=== PATIENT | female | born 1990 | race Caucasian/White ===

== ENCOUNTER 2021-10-04 13:39 | Emergency (ER) | payer BC, SELFPAY ==
[2021-10-04 13:42] VITALS: BP 120/83; PULSE 104; RESP 18; TEMP 37.3; O2SAT 97
--- NOTE | 2021-10-04 14:02 | ED.GENADULT ---
HPI - General Adult General Chief complaint: Upper Respiratory Infection Stated complaint: Body Aches,Vomiting,Fever History of Present Illness HPI narrative: Patient is a 31-year-old female who presents to the [facility] via POV for COVID-like symptoms that began yesterday. Additionally, she reports fever, chills, sweats, and vomiting. She reports one episode of vomiting undigested food. Maximum temperature was 101.9. She is taking ibuprofen every 6 hours. Ibuprofen controls fever and improves symptoms. Nothing worsens symptoms. Denies known exposure to sick contacts. Patient reports she is fully vaccinated against COVID. Related Data Home Medications Medication Instructions Recorded Confirmed etonogestrel 0.12 mg-ethinyl See Rx Instructions .Route .COMPLEX 10/04/21 10/04/21 estradiol 0.015 mg/24 hr vaginal ring (NuvaRing) Allergies Allergy/AdvReac Type Severity Reaction Status Date / Time aspirin AdvReac Severe Swelling Verified 10/04/21 13:56 of Lip/Tongue/Throat sulfamethoxazole AdvReac Mild Hives Verified 10/04/21 13:57 [From Bactrim] trimethoprim [From Bactrim] AdvReac Mild Hives Verified 10/04/21 13:57 Review of Systems Review of Systems: Denies history of COPD, bronchitis, asthma, and pneumonia. Denies current/past tobacco use. Pertinent negatives: change in appetite, fatigue, skin color changes, headache, nasal congestion/discharge, dizziness, lymphadenopathy, sinus problems, ear pain/drainage, chest pain, heart murmurs, heart palpitations, shortness of breath, wheezing, cyanosis, hemoptysis, hoarseness, orthopnea, pleuritic pain, nausea, diarrhea, and myalgias. PMFSH Comments I have reviewed and agree with the patient's past medical, surgical, social, and family hx as documented by the RN. There is no relevant family history pertinent to the presenting complaint. Exam Narrative: GENERAL: Well-appearing, well-nourished, and in no acute distress. Appears uncomfortable. HEAD: Normocephalic, atraumatic. No sinus tenderness or facial swelling appreciated. EYES: PERRLA and EOMI. No evidence of erythema, swelling, or drainage. ENT: Bilateral external ears and ear canals normal. Bilateral TMs are normal.No TM perforation. Nares clear, no rhinorrhea or epistaxis. Bilateral turbinates without erythema/ swelling. Mucous membranes moist and pink. Uvula is midline without erythema and swelling. No evidence of petechial rash, cobblestoning, lesions, ulcers, erythema, swelling, exudates, peritonsillar abscess, tenting, or drooling. Breath odor and voice normal. NECK: Supple. No Lymphadenopathy or nuchal rigidity appreciated. CHEST: Bilateral lung moreno are clear to auscultation. No respiratory distress. No evidence of cough or pleuritic cp upon examination. HEART: Tachycardia with a rate of 104. Regular rhythm. No murmur, gallop, or rub heard. EXTREMITIES: Normal range of motion. No edema. SKIN: Warm, clammy, no rash. NEURO: No focal deficits. Alert and oriented x3. Course Course Level of Care: Express Care Visit Medical Decision Making Differential Diagnosis Differential Diagnosis: Allergic rhinitis, ABRS, acute viral sinusitis, strep pharyngitis, nasopharyngitis, bronchitis, pneumonia, AOM, otitis externa, viral URI, influenza, covid-19 Vital Signs Vital Signs: Reviewed Lab Data Lab results narrative: rapid covid 19 is positive Critical Care Time Critical Care Time Critical Care Time: No Discharge Plan Discharge Clinical Impression: COVID-19 Patient Disposition: Home, Self-Care Condition: Stable Instructions: COVID-19 (Coronavirus Disease 2019) (ED) Additional Instructions: See discharge instructions for detailed information. If you have been prescribed a medication today, be sure to take/use the medication only as prescribed. You may take Tylenol/ibuprofen as needed for pain and swelling. Take only as directed per packaging label. Follow-u
== END 2021-10-04 14:25 | disposition home or self-care (01) ==
PROVIDERS: Emergency Provider Nurse Practitioner Family; PCP Nurse Practitioner Family
DX: U07.1 COVID-19 (principal)
CPT/HCPCS: 87426; 99203; C9803; G0463

== ENCOUNTER 2021-11-24 18:36 | Emergency (ER) | payer BC, SELFPAY ==
[2021-11-24 18:45] VITALS: BP 111/77; PULSE 124; RESP 18; TEMP 38.2; O2SAT 100
--- NOTE | 2021-11-24 18:46 | ED.ABDPAIN ---
HPI - Abdominal Pain General Chief Complaint: Unspecified Stated Complaint: Nausea,Lt Ear Irritation,Headache,Lower Back Pain Time Seen by Provider: 11/24/21 18:46 Source: patient, RN notes reviewed and old records reviewed Mode of arrival: ambulatory Limitations: no limitations History of Present Illness HPI narrative: 31-year-old female presents to the [facility] with concerns of nausea, low back pain, lower abdominal cramping, left ear irritation and a headache. Originally patient was concerned that she might have an ear infection then stated she might have a UTI. Is due to start her period any day now. Has low-grade fever, has not taken anything for it. Positive for COVID in September 2021 per medical record Started Ozempic on Tuesday, 2 days ago. Symptoms all started at noon today MD elicited complaint: abdominal pain Related Data Home Medications Medication Instructions Recorded Confirmed etonogestrel 0.12 mg-ethinyl See Rx Instructions .Route .COMPLEX 10/04/21 10/04/21 estradiol 0.015 mg/24 hr vaginal ring (NuvaRing) semaglutide 0.25 mg or 0.5 mg (2 0.25 mg subcut WEEKLY 11/24/21 11/24/21 mg/1.5 mL) subcutaneous pen injector (Ozempic) topiramate 25 mg tablet 25 mg PO BID 11/24/21 11/24/21 Allergies Allergy/AdvReac Type Severity Reaction Status Date / Time lamotrigine [From Lamictal] Allergy Rash Verified 11/24/21 18:57 aspirin AdvReac Severe Swelling Verified 11/24/21 18:57 of Lip/Tongue/Throat sulfamethoxazole AdvReac Mild Hives Verified 11/24/21 18:57 [From Bactrim] trimethoprim [From Bactrim] AdvReac Mild Hives Verified 11/24/21 18:57 Review of Systems Review of Systems: All systems reviewed & are unremarkable except as noted in HPI and below Constitutional: Constitutional: Reports as per HPI, Denies chills, Reports fatigue, Reports fever(s) and Reports headache(s) Eyes: Eyes: Reports no additional eye complaints ENT: Reports system reviewed and no additional complaints, except as documented Cardiovascular: Cardiovascular: Reports no additional cardiovascular complaints Respiratory: Respiratory: Reports no additional respiratory complaints Gastrointestinal: Gastrointestinal: Reports as per HPI, Reports abdominal pain (Lower abdominal cramping) and Reports nausea Musculoskeletal: Musculoskeletal: Reports as per HPI and Reports back pain (Lower back) Integumentary/Breasts: Skin/Breast: Reports system reviewed and no additional complaints, except as docu Neurologic: Reports system reviewed and no additional complaints, except as documented Psychiatric: Psychiatric: Reports no additional psychiatric complaints Allergic/Immunologic: Allergic/Immunologic: Reports no additional allergic/immunologic complaints [facility] Past Medical History Medical History (Updated 11/24/21 @ 19:42 by Rekha Jacinto APRN) Diabetes Comments At the time of my signature, I reviewed and agree with the nursing past medical, surgical, social, and family history. There is no relevant family history pertinent to the patient complaint. Exam Const: General: healthy appearing, no acute distress and alert Nutritional Appearance: well nourished Orientation/consciousness: patient oriented x3 Limitations: no limitations HENMT: Head: normal to inspection Ears: external ears normal, TM's normal bilaterally and EAC's normal General nose exam: Normal external nose present and Normal nares present Face and sinus: normal facial exam and sinuses nontender Mouth: Yes Normal oral and palatal mucosa present, Yes lip normal and Yes tongue normal Teeth and gingiva: dentition normal and gingiva normal Throat: posterior oropharynx normal, tonsils normal and uvula midline Eyes: General: appearance normal, both eyes and all related structures Conjunctivae: conjunctivae normal Pupils: Equal, round and reactive pupils present Neck: Neck: normal visual inspection, no lymphadenopathy and no meningeal signs Chest: Ch
== END 2021-11-24 19:41 | disposition short-term general hospital (02) ==
PROVIDERS: Emergency Provider Nurse Practitioner; PCP Nurse Practitioner Family
DX: R10.9 Unspecified abdominal pain (principal); R50.9 Fever, unspecified; E11.9 Type 2 diabetes mellitus without complications; Z86.16 Personal history of COVID-19
CPT/HCPCS: 81003; 87804; 99213; G0463

== ENCOUNTER 2021-11-24 19:58 | Emergency (ER) | payer BC, SELFPAY ==
[2021-11-24 20:01] VITALS: BP 118/62; PULSE 145; RESP 20; TEMP 37.4; O2SAT 100
--- NOTE | 2021-11-24 20:16 | ECG_ITS ---
Measurements Intervals [place] Rate: 137 P: 58 IA: 140 QRS: 30 QRSD: 75 T: 44 QT: 330 QTc: 500 Interpretive Statements SINUS TACHYCARDIA NONSPECIFIC ST & T-WAVE ABNORMALITY- DIFFUSE LEADS ABNORMAL ECG NO PREVIOUS ECG AVAILABLE FOR COMPARISON Electronically Signed On 11-25-2021 6:41:43 CDT by Orestes Howell D.O.
--- NOTE | 2021-11-24 20:29 | PC.NURSE ---
Patient refused IV at this time
--- NOTE | 2021-11-24 21:21 | ED.FEVER ---
HPI - Fever General Chief Complaint: Fever <ASHWINI Rodriguez Last Filed: 11/25/21 01:21> Stated Complaint: Multiple Complaints, Sent From Urgent Care <ASHWINI Rodriguez Last Filed: 11/25/21 01:21> Time Seen by Provider: 11/24/21 20:16 <ASHWINI Rodriguez Last Filed: 11/25/21 01:21> Source: patient <ASHWINI Rodriguez Last Filed: 11/25/21 01:21> Mode of arrival: ambulatory <ASHWINI Rodriguez Last Filed: 11/25/21 01:21> Limitations: no limitations <ASHWINI Rodriguez Last Filed: 11/25/21 01:21> History of Present Illness HPI Narrative: This is a 31 year old female that presents to the ER for lower abdominal pain present today. Associated with nausea, vomiting, fever and flank pain. Denies cough, congestion or diarrhea. <ASHWINI Rodriguez Last Filed: 11/25/21 01:21> Related Data Home Medications: Home Medications Medication Instructions Recorded Confirmed etonogestrel 0.12 mg-ethinyl See Rx Instructions .Route .COMPLEX 10/04/21 11/24/21 estradiol 0.015 mg/24 hr vaginal ring (NuvaRing) semaglutide 0.25 mg or 0.5 mg (2 0.25 mg subcut WEEKLY 11/24/21 11/24/21 mg/1.5 mL) subcutaneous pen injector (Ozempic) topiramate 25 mg tablet 25 mg PO BID 11/24/21 11/24/21 <ASHWINI Rodriguez Last Filed: 11/25/21 01:21> Allergies/Adverse Reactions: Allergies Allergy/AdvReac Type Severity Reaction Status Date / Time lamotrigine [From Lamictal] Allergy Rash Verified 11/24/21 20:06 aspirin AdvReac Severe Swelling Verified 11/24/21 20:06 of Lip/Tongue/Throat sulfamethoxazole AdvReac Mild Hives Verified 11/24/21 20:06 [From Bactrim] trimethoprim [From Bactrim] AdvReac Mild Hives Verified 11/24/21 20:06 <Janie Raphael PA-C - Last Filed: 11/25/21 01:21> Review of Systems Review of Systems: CONSTITUTIONAL: Reports fever GASTROINTESTINAL: Reports abdominal pain, nausea, vomiting. Denies diarrhea. GENITOURINARY: Denies dysuria or hematuria. <Janie Raphael PA-C - Last Filed: 11/25/21 01:21> All systems reviewed & are unremarkable except as noted in HPI and below <Janie Raphael PA-C - Last Filed: 11/25/21 01:21> PMFSH Past Medical History Medical History: Medical History (Updated 11/25/21 @ 01:20 by Janie Raphael PA-C) History of anxiety <Janie Raphael PA-C - Last Filed: 11/25/21 01:21> Social History Social History: Social History (Updated 11/24/21 @ 21:24 by Janie Raphael PA-C) Smoking status: Never smoker Alcohol intake: current Substance use: never <Janie Raphael PA-C - Last Filed: 11/25/21 01:21> Exam Narrative: GENERAL: Well-appearing, well-nourished, and in mild acute distress due to anxiety. HEAD: Normocephalic, atraumatic. EYES: EOMI. CHEST: Clear to auscultation. No respiratory distress. No wheezes rales or rhonchi HEART: Regular rate and rhythm. No murmur heard. Normal peripheral pulses. ABDOMEN: Soft, nondistended, normal active bowel sounds. Mild tenderness to palpation throughout the mid to lower abdomen, without guarding. No CVA tenderness EXTREMITIES: Normal range of motion. No edema. SKIN: Warm, dry, no rash. NEURO: No focal deficits. Alert and oriented x3. PSYCH: Anxious <Janie Raphael PA-C - Last Filed: 11/25/21 01:21> Course REGIONAL DIRECTOR/PA Physician Supervision I discussed this patient with NELA Raphael. I agree with the assessment and plan as documented. <Isaac Rivero MD - Last Filed: 11/25/21 07:25> Vital Signs Vital signs: Vital Signs Temperature 99.3 F 11/24/21 20:01 Pulse Rate 145 H 11/24/21 20:01 Respiratory Rate 20 11/24/21 20:01 Blood Pressure 118/62 11/24/21 20:01 Pulse Oximetry 100 11/24/21 20:01 Oxygen Delivery Room Air 11/24/21 20:01 Temperature 99.3 F 11/24/21 20:01 Pulse Rate 145 H 11/24/21 20:01 Respiratory Rate 20 11/24/21 20:01 Blood Pressure 118/62 11/24/21 20:01 Pulse
--- NOTE | 2021-11-24 21:59 | PC.NURSE ---
Eliane, RN was able to obtain IV access, but was unable to obtain blood. tech attempted to straight stick to obtain blood and patient became upset stating she didnt want to do it. provider and nurse discharge aware.
--- NOTE | 2021-11-24 22:14 | PC.NURSE ---
This RN spoke with patient about the importance of getting blood work. patient states we cannot stick her again. patient educated on AMA paperwork and patient signed paperwork.
== END 2021-11-24 22:20 | disposition left against medical advice (07) ==
LOC: ANHED 20:21
PROVIDERS: Emergency Provider Preventive Medicine Aerospace Medicine; PCP Nurse Practitioner Family
DX: R50.9 Fever, unspecified (principal); R00.0 Tachycardia, unspecified
CPT/HCPCS: 93005; 99283